=== PATIENT | male | born 2000 | race Hispanic/Latino ===

== ENCOUNTER 2021-02-06 15:42 | Emergency (ER) | payer BC ==
[2021-02-06] MEDS ORDERED: Lorazepam 2 MG/ML VIAL ONE (16:43)
== END 2021-02-06 17:02 | disposition home or self-care (01) ==
LOC: MADERS 15:42
DX: R42 Dizziness and giddiness (principal); E03.9 Hypothyroidism, unspecified
CPT/HCPCS: 96372; 99283; J2060